=== PATIENT | male | born 1960 | race Caucasian/White ===

== ENCOUNTER 2016-10-29 11:04 | Emergency (ER) | payer OTHER ==
[~2016-10-29] VITALS: Ht 177.8 cm; Wt 83.9 kg
[2016-10-29] MEDS ORDERED: CIPROFLOXACIN500 M2 PO (11:45)
[2016-10-29] MEDS ORDERED: METRONIDAZOLE500 M1 PO (11:45)
--- NOTE | 2016-10-29 12:08 | ED GI/GU/ABDOMINAL COMPLAINT ---
History of Present Illness General Chief Complaint: General Adult Stated Complaint: SENT IN FOR ?ABNORMAL LABS/ABD PAIN Source: patient Exam Limitations: no limitations Vital Signs & Intake/Output Vital Signs & Intake/Output Vital Signs Date Time Temp Pulse Resp B/P Pulse O2 O2 Flow FiO2 Ox Delivery Rate 10/29 1304 97.8 73 18 150/76 97 Room Air 10/29 1108 98.8 83 20 150/82 100 Room Air Allergies Coded Allergies: No Known Allergies (10/29/16) Reconcile Medications Ciprofloxacin HCl 500 MG TABLET 1 TAB PO BID ANTIBIOTIC, INFECTION (Reported) Metronidazole 500 MG TABLET 1 TAB PO TID ANTIBIOTIC, INFECTION (Reported) Triage Note: PT TO ED, SENT IN BY [facility] FOR ABNORMAL LABS. PT WENT TO [facility]ALK IN ON 10/26 FOR ABD PAIN. PT HAD LABS DRAWN WAS GIVEN PO CIPRO AND PO FLAGYL TO TAKE AT HOME. PT WAS BEEN TAKING ABX PRESCRIBED. PT RECEIVED CALL ON SATURDAY TO GO TO ED FOR INCREASE WBC FOR FURTHER EVAL. PT STATES PAIN GOT A LITTLE BETTER AFTER STARTING ABX. Triage Nurses Notes Reviewed? yes HPI: 56-year-old male who was seen at a walk-in center on Saturday after 2 or 3 days of left lower quadrant abdominal pain and not feeling well, pain was severe and cramping. He had blood tests and a urine test and thought maybe he had a colon infection, possibly diverticulitis as per the patient. He was placed on Cipro and Flagyl. He was called today and notified that his white blood cell count was very high and he should go to the ER for further evaluation. He does not know what the actual white blood cell count was. He states he's been taking the antibiotics for approximately 3 1/2 days now and he feels significantly better. He has no nausea no vomiting no fever no flulike illness, he has a normal appetite. He has very mild pain in the left lower quadrant with palpation. He denies any other complaints. Past History Travel History Traveled to [place] past 21 day No Medical History Any Pertinent Medical History? none Surgical History Surgical History: non-contributory Psychosocial History What is your primary language Turkish Tobacco Use: Current Daily Use Daily Tobacco Use Amount/Type: => 5 Cigarettes daily ETOH Use: occasional use Illicit Drug Use: denies illicit drug use Family History Hx Contributory? No Review of Systems Review of Systems Constitutional: Reports: see HPI. EENTM: Reports: no symptoms. Respiratory: Reports: no symptoms. Cardiovascular: Reports: no symptoms. GI: Reports: see HPI. Genitourinary: Reports: no symptoms. Musculoskeletal: Reports: no symptoms. Skin: Reports: no symptoms. Neurological/Psychological: Reports: no symptoms. Hematologic/Endocrine: Reports: no symptoms. Immunologic/Allergic: Reports: no symptoms. All Other Systems: Reviewed and Negative Physical Exam Physical Exam Respiratory: normal breath sounds, chest non-tender, no respiratory distress Cardiovascular: regular rate/rhythm Gastrointestinal: normal bowel sounds, soft, no organomegaly, MILD TENDERNESS IN LEFT LOWER QUADRANT Comments: Well-developed well-nourished no apparent distress. HEENT: Atraumatic, extraocular motion intact Neck: Supple, no lymphadenopathy Back: Nontender Respiratory: No respiratory distress Extremities: No edema, full range of motion Neuro: Alert and oriented x3 Psych: Mood affect normal, normal memory normal judgment. Skin: Warm and dry, no rash on exposed skin Core Measures ACS in differential dx? No Severe Sepsis Present: No Septic Shock Present: No Progress Differential Diagnosis: AAA, AMI, appendicitis, biliary colic, bowel obstruction , colon cancer, cholecystitis, diverticulitis, epididymitis, esophageal varices, gastritis, hepatitis, hernia, hemorrhoids, ischemic bowel, inflamm bowel dis, Subha-Kelly tear, orchitis, pancreatitis, prostatitis, peptic ulcer, PUD/GERD, perforated viscous, pyelonephritis, SBO, STD, testicular torsion, ureterolithiasis, urinary retention, urethritis, UTI/pyelo, perfed divertic, pericolonic abscess Plan of Care: Orders Procedure Date/time Status COMPREHENSIVE METABOLIC PANEL 10/29 1157 Complete CBC WITHOUT DIFFERENTIAL 10/29 1157 Complete Laboratory Tests 10/29/16 1203: Anion Gap 10, Estimated GFR > 60, BUN/Creatinine Ratio 22.9, Glucose 101 H, Calcium 9.8, Total Bilirubin 0.7, AST 27, ALT 37, Alkaline Phosphatase 109, Total Protein 7.7, Albumin 4.6, Globulin 3.1, Albumin/Globulin Ratio 1.5, CBC w Diff NO MAN DIFF REQ, RBC 4.51 L, MCV 95.5 H, MCH 32.7 H, RDW 12.6, MPV 7.8, Gran % 78.9 H, Lymphocytes % 15.0 L, Monocytes % 4.5, Eosinophils % 0.8, Basophils % 0.8, Absolute Granulocytes 8.6 H, Absolute Lymphocytes 1.6, Absolute Monocytes 0.5, Absolute Eosinophils 0.1, Absolute Basophils 0.1, PUBS MCHC 34.3 Initial ED EKG: none Comments: wbc modestly elevated to be expected with presumed diverticulitis. pt clinically looks much improved and has minimal tenderness. to fup with pcp or gi, low fiber diet, return with severe pain, n v or fever. Departure Departure Disposition: HOME OR SELF CARE Condition: Stable Clinical Impression Primary Impression: Diverticulitis Qualifiers: Diverticulitis site: large intestine Diverticulitis bleeding: without bleeding Diverticulitis complication: without perforation or abscess Qualified Code: K57.32 - Diverticulitis of large intestine without perforation or abscess without bleeding Referrals: YOVANNY PAINTING DO (PCP/Family) Additional Instructions: Return to ER with worsening abdominal pain, nausea, vomiting, fever. Continue to take your antibiotics as directed. Follow-up with your primary care doctor or your sewage treatment plant operator if you continue to have left lower quadrant pain. Departure Forms: Customer Survey General Discharge Information
[2016-10-29 12:17] LABS: ABSOLUTE BASOPHIL COUNT 0.1 /CUMM (0.0-0.2); ABSOLUTE EOSINOPHIL COUNT 0.1 /CUMM (0.0-0.7); ABSOLUTE GRANULOCYTE CT 8.6 /CUMM (1.4-6.5); ABSOLUTE LYMPH COUNT 1.6 /CUMM (1.2-3.4); ABSOLUTE MONOCYTE COUNT 0.5 /CUMM (0.10-0.60); BASOPHIL % 0.8 % (0.0-2.0); EOSINOPHIL % 0.8 % (0-5); GRANULOCYTE % 78.9 % (42.2-75.2); MEAN CORPUSCULAR HGB 32.7 PG (27.0-31.0); MEAN CORPUSCULAR HGB CONC 34.3 G/DL (33.0-37.0); MEAN CORPUSCULAR VOLUME 95.5 FL (80.0-94.0); MEAN PLATELET VOLUME 7.8 FL (7.4-10.4); PLATELET COUNT 239 /CUMM (130-400); RBC DISTRIBUTION WIDTH 12.6 % (11.5-14.5); RED BLOOD CELL CT 4.51 /CUMM (4.70-6.10); WHITE BLOOD CELL COUNT 10.9 /CUMM (4.8-10.8)
[2016-10-29 13:04] VITALS: BP 150/76
== END 2016-10-29 13:05 ==
LOC: ERH 11:04
PROVIDERS: Physician Assistant Surgical
DX: K57.92 Diverticulitis of intestine, part unspecified, without perforation or abscess without bleeding (principal)